=== PATIENT | female | born 1955 | race African-American/Black ===

== ENCOUNTER → 2016-07-02 | Emergency (ER) | payer OTHER ==
[~2016-07-02] MED LIST: ENALAPRILAT DIHYDRATE 2.5 MG/2 ML VIAL IVPB ONE
[2016-07-02 21:29] VITALS: TEMP 98.8; BMI 34.7
--- NOTE | 2016-07-02 21:46 | PDOC ---
History of Present Illness - General History Source: Patient Exam Limitations: No Limitations - History of Present Illness Initial Comments: 07/02/16 22:26 The patient is a 61 year old female with significant past medical history of glaucoma, hypertension, hyperlipidemia, asthma, GERD, and anxiety who presents to the ED with high blood pressure. Patient admits to not taking her blood pressure medications 2 days ago. However, she took her blood pressure medications yesterday after she started to experience a headache. She took an excedrin for her headache with improvement. Patient reports her blood pressure was 171/105 after checking it at home today. She also reports feeling jittery and anxious that improved after taking buspirone. At time of evaluation, patient denies all other complaints and states she comes into the ER after she became concern for her high blood pressure. She denies lightheadedness, blurry vision, diaphoresis, chest pain, SOB, neck pain, jaw pain, shoulder pain, arm pain, nausea, and vomiting. The patient denies fever, chills, cough, abdominal pain, and diarrhea. Allergies: clarithromycin Social History: No alcohol, tobacco, or drug use reported. Past Surgical History: Hernia repair PCP: Dr. Polo Momin GI: Dr. Aguila Parks <Elba Bray - Last Filed: 07/02/16 22:26> - General History Source: Patient <Jason Feng - Last Filed: 07/02/16 23:47> - General Chief Complaint: Blood Pressure Problem Stated Complaint: Blood Pressure Problem Time Seen by Provider: 07/02/16 21:46 Past History <Elba Bray - Last Filed: 07/02/16 22:26> - Past Medical History Asthma: Yes GI Disorders: Yes (gastritis) HTN: Yes Hypercholesterolemia: Yes Suicide Attempt (Hx): No - Surgical History Abdominal Surgery: Yes (HERNIA) Appendectomy: No Cardiac Surgery: No Cholecystectomy: No - Reproductive History Therapeutic (s) & number: No - Immunization History Immunization Up to Date: Yes - Psycho/Social/Smoking Cessation Hx Anxiety: No Suicidal Ideation: No Smoking Status: No Smoking History: Never smoked Number of Cigarettes Smoked Daily: 0 Information on smoking cessation initiated: No Hx Alcohol Use: No Drug/Substance Use Hx: No Substance Use Type: None <Jason Feng - Last Filed: 07/02/16 23:47> - Past Medical History Allergies/Adverse Reactions: Allergies Allergy/AdvReac Type Severity Reaction Status Date / Time clarithromycin [From Biaxin] AdvReac Verified 07/02/16 21:25 Home Medications: Ambulatory Orders Albuterol Sulfate Inhaler - [Ventolin Hfa Inhaler -] 1 - 2 inh PO QID PRN Bupropion HCl [Bupropion Xl] 150 mg PO DAILY 12/22/15 Buspirone HCl [Buspar -] 15 mg PO DAILY 12/22/15 Calcium Carb, Citrate/Vit D3 [Citracal + D ER Tablet] 1 each PO DAILY 12/22/15 Cholecalciferol (Vitamin D3) [Vitamin D3] 1,000 unit PO DAILY 12/22/15 Diphenhydramine [Benadryl -] 50 mg PO HS 12/22/15 Docusate Sodium [Colace -] 100 mg PO TID 12/22/15 Dorzolamide HCl [Trusopt] 1 drop OP TID 12/22/15 Hypromellose 0.5% Opth Soln [Artificial Tears] 1 drop OU DAILY 12/22/15 Latanoprost 0.005% Eye Drops [Xalatan 0.005% Eye Drops -] 1 drop HS 12/22/15 Lisinopril [Prinivil] 20 mg PO DAILY 12/22/15 Loratadine 10 mg PO DAILY 12/22/15 Omeprazole [Prilosec] 40 mg PO PRN 12/22/15 Pravastatin Sodium [Pravachol (Nf)] 40 mg PO HS 12/22/15 Review of Systems - Review of Systems Able to Perform ROS?: Yes Comments:: 07/02/16 22:26 CONSTITUTIONAL: Absent: fever, no chills, no fatigue EYES: Absent: visual changes ENT: Absent: ear pain, no sore throat CARDIOVASCULAR: +high blood pressure Absent: chest pain, no palpitations RESPIRATORY: Absent: cough, no SOB GI: Absent: abdominal pain, no nausea, no vomiting, no constipation, no diarrhea GENITOURINARY: Absent: dysuria, no frequency, no hematuria MUSKULOSKELETAL: Absent: back pain, no arthralgia, no myalgia SKIN: Absent: rash NEURO: +headache PSYCH: +anxious <Bharrat,Elba - Last Filed: 07/02/16 22:26> *Physical Exam - Vital Signs Last Vital Signs Temp Pulse Resp BP Pulse Ox 98.8 F 101 H 16 193/113 99 07/02/16 21:25 07/02/16 21:25 07/02/16 21:25 07/02/16 21:25 07/02/16 21:25 - Physical Exam Comments: 07/02/16 22:26 GENERAL: Well-appearing, well-nourished. No apparent distress. HEENT: Normocephalic, atraumatic. PERRL, EOM intact. CARDIOVASCULAR: Normal S1, S2. Regular rate and rhythm. PULMONARY: Clear to auscultation bilaterally. ABDOMEN: Soft, non-distended, non-tender. EXTREMITIES: Normal ROM in all four extremities. No gross deformities. SKIN: Warm, dry. No rash NEUROLOGICAL: No focal neurological deficits. <Elba Bray - Last Filed: 07/02/16 22:26> - Vital Signs Last Vital Signs Temp Pulse Resp BP Pulse Ox 98.8 F 101 H 16 193/113 99 07/02/16 21:25 07/02/16 21:25 07/02/16 21:25 07/02/16 21:25 07/02/16 21:25 <Jason Feng - Last Filed: 07/02/16 23:47> ED Treatment Course - LABORATORY CBC & Chemistry Diagram: 07/02/16 22:35 07/02/16 22:35 <Jason Feng - Last Filed: 07/02/16 23:47> Medical Decision Making - Medical Decision Making 07/02/16 23:44 Dr. Feng: The scribe's documentation has been prepared under my direction and personally reviewed by me in its entirery. I confirm that the note above accurately reflects all work, treatment, procedures, and medical decision making performed by me. Pt BP is 145/90. Pt feels better. Labs stable. will discharge. <Jason Feng - Last Filed: 07/02/16 23:47> *DC/Admit/Observation/Transfer - Attestations Scribe Attestion: 07/02/16 22:27 Documentation prepared by Elba Bray, acting as medical education specialist for Jason Feng MD <Elba Bray - Last Filed: 07/02/16 22:26> - Discharge Dispostion Admit: No <Jason Feng - Last Filed: 07/02/16 23:47> Diagnosis at time of Disposition: Headache, High blood pressure - Discharge Dispostion Disposition: HOME Condition at time of disposition: Stable - Referrals Referrals: Polo Hester MD [Primary Care Provider] - Malcom Craft MD [Staff Physician] - - Patient Instructions Printed Discharge Instructions: DI for High Blood Pressure
[2016-07-02 23:05] LABS: BASOPHIL 0.5 % (0-2.0); EOSINOPHIL 0.8 % (0-4.5); MCH 26.9 pg (25.7-33.7); MEAN CELL VOLUME 86.9 fl (80-96); MEAN PLT VOLUME 9.8 fl (7.5-11.1); NEUTROPHILS 58.8 % (42.8-82.8); PLATELET COUNT 236 K/MM3 (134-434); RDW 14.2 % (11.6-15.6); WHITE BLOOD COUNT 6.5 K/mm3 (4.0-10.0)
[2016-07-02 23:06] LABS: PH,URINE 6.5 (5.0-8.0); URINE APPEARANCE CLEAR; URINE BILIRUBIN NEGATIVE (NEGATIVE); URINE BLOOD NEGATIVE (NEGATIVE); URINE COLOR LT. YELLOW; URINE GLUCOSE (UA) NEGATIVE (NEGATIVE); URINE KETONE NEGATIVE (NEGATIVE); URINE NITRITE NEGATIVE (NEGATIVE); URINE PROTEIN NEGATIVE (NEGATIVE); URINE UROBILINOGEN 0.2 E.U/dl E.U./dl (0.2-1.0)
[2016-07-02 23:07] LABS: URINE LEUK ESTERASE TRACE (NEGATIVE)
[2016-07-02 23:16] LABS: ANION GAP 8 (8-16); CALCIUM 9.3 mg/dL (8.5-10.1); CO2 25 mmol/L (21-32); CREATININE 1.1 mg/dL (0.55-1.02); GLUCOSE,RANDOM 82 mg/dL (74-106)
[2016-07-02 23:18] LABS: TROPONIN I < 0.02 ng/ml (0.00-0.05)
[2016-07-02 23:19] LABS: URINE BACTERIA RARE /hpf (NONE SEEN); URINE MUCUS RARE; URINE RBC <1 /hpf (0-3); URINE WBC 11 /hpf (3-5)
[2016-07-03 00:19] VITALS: BP 154/85; PULSE 87
== END | disposition home or self-care (01) ==
LOC: JER 20:58
PROC: 3E033GC Introduction of Other Therapeutic Substance into Peripheral Vein, Percutaneous Approach (ICD-10-PCS; principal; 2016-07-02)
DX: I10 Essential (primary) hypertension (principal); R51 Headache; K21.9 Gastro-esophageal reflux disease without esophagitis; H40.9 Unspecified glaucoma
CPT/HCPCS: 36415; 80048; 81003; 81015; 82550; 82553; 84484; 85025; 99281-25

== ENCOUNTER 2016-09-22 18:43 | Emergency (ER) | payer OTHER ==
[2016-09-22 18:51] VITALS: TEMP 98.3; BMI 34.7
[2016-09-22] MEDS ORDERED: HYDROCHLOROTHIAZIDE 25 MG TABLET (FP) PO ONE (21:01)
--- NOTE | 2016-09-22 21:10 | PDOC ---
[id number]: HIGH BP Time Seen by Provider: 09/22/16 20:26 History Source: Patient - History of Present Illness Initial Comments: 09/22/16 21:01 61 year old female c/o " high blood pressure" at home. reports not taking b/p meds for a "couple" of days due to family stressors. patient is currently taking care of grandson. patient reported headache at home which she took her scheduled lisinopril, amlodipine and Excedrin. patient with relief in headache at this time. patient denies headache, dizziness, nausea, vomiting, chest pain. patient has a history of hypertension, hypercholestremia and glaucoma. Past History - Past Medical History Allergies/Adverse Reactions: Allergies Allergy/AdvReac Type Severity Reaction Status Date / Time clarithromycin [From Biaxin] AdvReac Verified 09/22/16 18:51 Home Medications: Ambulatory Orders Albuterol Sulfate Inhaler - [Ventolin Hfa Inhaler -] 1 - 2 inh PO QID PRN Bupropion HCl [Bupropion Xl] 150 mg PO DAILY 12/22/15 Buspirone HCl [Buspar -] 15 mg PO DAILY 12/22/15 Calcium Carb, Citrate/Vit D3 [Citracal + D ER Tablet] 1 each PO DAILY 12/22/15 Cholecalciferol (Vitamin D3) [Vitamin D3] 1,000 unit PO DAILY 12/22/15 Diphenhydramine [Benadryl -] 50 mg PO HS 12/22/15 Docusate Sodium [Colace -] 100 mg PO TID 12/22/15 Dorzolamide HCl [Trusopt] 1 drop OP TID 12/22/15 Hypromellose 0.5% Opth Soln [Artificial Tears] 1 drop OU DAILY 12/22/15 Latanoprost 0.005% Eye Drops [Xalatan 0.005% Eye Drops -] 1 drop HS 12/22/15 Lisinopril [Prinivil] 20 mg PO DAILY 12/22/15 Loratadine 10 mg PO DAILY 12/22/15 Omeprazole [Prilosec] 40 mg PO PRN 12/22/15 Pravastatin Sodium [Pravachol (Nf)] 40 mg PO HS 12/22/15 Asthma: Yes GI Disorders: Yes (gastritis) HTN: Yes Hypercholesterolemia: Yes Suicide Attempt (Hx): No - Surgical History Abdominal Surgery: Yes (HERNIA) Appendectomy: No Cardiac Surgery: No Cholecystectomy: No - Reproductive History Therapeutic (s) & number: No - Immunization History Immunization Up to Date: Yes - Psycho/Social/Smoking Cessation Hx Anxiety: No Suicidal Ideation: No Smoking Status: No Smoking History: Never smoked Number of Cigarettes Smoked Daily: 0 Information on smoking cessation initiated: No Hx Alcohol Use: No Drug/Substance Use Hx: No Substance Use Type: None Review of Systems - Review of Systems Able to Perform ROS?: Yes Is the patient limited Faroese proficient: No Constitutional: No: Symptoms Reported, See HPI, Chills, Diaphoresis, Fever, Loss of Appetite, Malaise, Night Sweats, Weakness, Weight Stable, Unintentional Wgt. Loss, Unexplained wgt Loss, Other Cardiac (ROS): No: Symptoms Reported, See HPI, Chest Pain, Edema, Irregular Heart Rate, Lightheadedness, Palpitations, Syncope, Chest Tightness, Other Integumentary: No: Symptoms Reported, See HPI, Bruising, Change in Color, Change in Hair/Nails, Dryness, Erythema, Flushing, Lesions, Lumps, Pallor, Pruritus, Rash, Sweating, Other Neurological: Yes: Headache. No: Symptoms reported, See HPI, Numbness, Paresthesia, Pre-Existing Deficit, Seizure, Tingling, Tremors, Weakness, Unsteady Gait, Ataxia, Dizziness, Other *Physical Exam - Vital Signs Last Vital Signs Temp Pulse Resp BP Pulse Ox 98.3 F 99 H 18 188/102 100 09/22/16 18:47 09/22/16 18:47 09/22/16 18:47 09/22/16 18:47 09/22/16 18:47 - Physical Exam General Appearance: Yes: Appropriately Dressed Respiratory/Chest: positive: Lungs Clear, Normal Breath Sounds Cardiovascular: positive: Regular Rhythm, Regular Rate, S1, S2. 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 patient currently asymptomatic. b/p slowly decreasing. 09/22/16 22:24 patient feels better. will d/c home to follow up with pmd As soon as possible. *DC/Admit/Observation/Transfer Diagnosis at time of Disposition: High blood pressure Qualifiers: Hypertension type: essential hypertension Qualified Code(s): I10 - Essential ( primary) hypertension - Discharge Dispostion Disposition: HOME - Referrals Referrals: Polo Hester MD [Primary Care Provider] - - Patient Instructions Printed Discharge Instructions: DI for High Blood Pressure Additional Instructions: please follow up with your doctor as soon as possible Continue taking home b/p medications as prescribed. return to the ER for worsening symptoms.
[2016-09-22] MEDS ORDERED: HYDROCHLOROTHIAZIDE 25 MG TABLET (FP) ONE (21:17)
[2016-09-22 22:23] VITALS: BP 159/101; PULSE 84
--- NOTE | 2016-09-24 13:22 | EKG ---
Test Reason : Blood Pressure : / mmHG Vent. Rate : 087 BPM Atrial Rate : 087 BPM P-R Int : 152 ms QRS Dur : 088 ms QT Int : 366 ms P-R-T Axes : 066 008 043 degrees QTc Int : 440 ms NORMAL SINUS RHYTHM MINIMAL VOLTAGE CRITERIA FOR LVH, MAY BE NORMAL VARIANT SEPTAL INFARCT , AGE UNDETERMINED ABNORMAL ECG WHEN COMPARED WITH ECG OF 27-APR-2016 06:18, NO SIGNIFICANT CHANGE WAS FOUND Confirmed by ANGEL ARIZA MD ([id number]) on 09/24/2016 1:22:03 PM Referred By: Confirmed By:ANGEL ARIZA MD
== END 2016-09-22 22:32 | disposition home or self-care (01) ==
LOC: JER 18:43
DX: I10 Essential (primary) hypertension (principal); E78.00 Pure hypercholesterolemia, unspecified; J45.909 Unspecified asthma, uncomplicated
CPT/HCPCS: 93005; 93010; 99282-25

== ENCOUNTER 2017-05-23 03:26 | Emergency (ER) | payer OTHER ==
--- NOTE | 2017-05-23 03:55 | PDOC ---
Attending Attestation - Resident Resident Name: Emmie Kaminski - ED Attending Attestation I have performed the following: I have examined & evaluated the patient, The case was reviewed & discussed with the resident, I agree w/resident's findings & plan, Exceptions are as noted - HPI HPI: 05/23/17 04:18 62yo F hx HTN, anxiety, HL, asthma p/w high blood pressure at home. Reports she was feeling jittery earlier this evening, took her blood pressure and it was elevated to 160/100 so she took her home dose of lisinopril and amlodipine at 10pm. She rechecked her BP at 1:30am and found it to be in the 180s prompting her to come to the ED. ALso gradual onset headache yesterday which she took excedrin for with minimal relief. +mild nausea, no vomiting. Denies cp, visual sxs, sob, focal weakness or numbness. Denies f/c/abd pain, LE edema. Reports she is instructed to take her BP meds PRN her systolic goes above 140s. Pt with multiple similar presentations in the past to the ED. - Physicial Exam PE: 05/23/17 04:31 GENERAL: Awake, alert, and fully oriented, in no acute distress HEAD: No signs of trauma EYES: PERRLA, EOMI, sclera anicteric, conjunctiva clear ENT: Auricles normal inspection, hearing grossly normal, nares patent, oropharynx clear without exudates. Moist mucosa NECK: Normal ROM, supple, no lymphadenopathy, JVD, or masses LUNGS: Breath sounds equal, clear to auscultation bilaterally. No wheezes, and no crackles HEART: Regular rate and rhythm, normal S1 and S2, no murmurs, rubs or gallops ABDOMEN: Soft, nontender, normoactive bowel sounds. No guarding, no rebound. No masses EXTREMITIES: Normal range of motion, no edema. No clubbing or cyanosis. No cords, erythema, or tenderness NEUROLOGICAL: Normal speech, cranial nerves intact, negative pronator drift, 5/ 5 strength in all 4 extremities, normal sensation to light touch in all 4 extremities, normal cerebellar exam, normal gait, normal reflexes and tone SKIN: Warm, Dry, normal turgor, no rashes or lesions noted. - Medical Decision Making 05/23/17 04:31 62-year-old female presents with hypertensive urgency versus emergency. Blood pressure on presentation is 180/106. Headache of gradual headache, pt states identical to previous headaches when hypertensive. Will check labs for end organ damage and treat headache and reassess BP. 05/23/17 06:00 Labs are unremarkable. Blood pressure has come down from 180/106 to 143/103. Pt reports improvement in headache. 05/23/17 07:13 Blood pressure down to 140/94. Will discharge patient home to f/u with Dr. Epstein for BP medication titration. I discussed the physical exam findings, ancillary test results and final diagnoses with the patient. I answered all of the patient's questions. The patient was satisfied with the care received and felt comfortable with the discharge plan and treatment plan. The patient will call their primary care physician within 24 hours to arrange follow-up and will return to the Emergency Department with any new, persistent or worsening symptoms. Heart Score/ECG Review #1 05/23/17 05:13 Twelve-lead EKG was performed and reviewed by me. Normal sinus rhythm, rate 64. Normal axis and intervals. Possible LVH. No ST elevations.
--- NOTE | 2017-05-23 03:55 | PDOC ---
History of Present Illness - General Stated Complaint: BLOOD PRESSURE PROBLEM Time Seen by Provider: 05/23/17 03:54 - History of Present Illness Initial Comments: 05/23/17 05:31 62yo woman with PMH of HTN, HLD, asthma, and glaucoma who presents with high blood pressure. The patient reports feeling "jittery" earlier this evening, which prompted her to check her BP at home and found it to be 160's/100. She then took her home lisinopril 20mg and amlodipine 5mg at around 10pm. She reports that she's instructed to take her home meds when her BP >140/>90. However, she only intermittently checks her home BP. She also reports gradual onset SHARMA for the past day, which is similar in character to prior SHARMA when her BP is elevated. She took 2xExcedrin with minimal relief.Endorses some nausea, but no emesis. Denies any changes in vision, fever, chills, or chest pain. She has had two similar presentations in the past year. Past History - Travel Traveled outside of the country in the last 30 days: No Close contact w/someone who was outside of country & ill: No - Past Medical History Allergies/Adverse Reactions: Allergies Allergy/AdvReac Type Severity Reaction Status Date / Time clarithromycin [From Biaxin] AdvReac Verified 05/23/17 04:07 Home Medications: Ambulatory Orders Albuterol Sulfate Inhaler - [Ventolin Hfa Inhaler -] 1 - 2 inh PO QID 05/23/17 Amlodipine Besylate 5 mg PO DAILY 05/23/17 Bupropion HCl [Bupropion Xl] 150 mg PO DAILY 05/23/17 Buspirone HCl 15 mg PO HS 05/23/17 Cholecalciferol (Vitamin D3) [Vitamin D3] 1,000 iu PO DAILY 05/23/17 Diphenhydramine [Benadryl -] 50 mg PO DAILY 05/23/17 Docusate Sodium [Colace -] 100 mg PO DAILY 05/23/17 Dorzolamide HCl [Trusopt 2%] 1 drop OU TID 05/23/17 Hypromellose 0.5% Opth Soln [Artificial Tears] 1 drop OU DAILY 05/23/17 Latanoprost 0.005% Eye Drops [Xalatan 0.005% Eye Drops -] 1 drop OU HS 05/23/17 Lisinopril [Prinivil] 20 mg PO DAILY 05/23/17 Loratadine 10 mg PO DAILY 05/23/17 Pravastatin Sodium [Pravachol (Nf)] 40 mg PO HS 05/23/17 Asthma: Yes GI Disorders: Yes (gastritis) HTN: Yes Hypercholesterolemia: Yes - Surgical History Abdominal Surgery: Yes (HERNIA) Appendectomy: No Cardiac Surgery: No Cholecystectomy: No - Reproductive History Therapeutic (s) & number: No - Immunization History Immunization Up to Date: Yes - Suicide/Smoking/Psychosocial Hx Smoking Status: No Smoking History: Never smoked Number of Cigarettes Smoked Daily: 0 Hx Alcohol Use: No Drug/Substance Use Hx: No Substance Use Type: None Review of Systems - Review of Systems Able to Perform ROS?: Yes ABD/GI: Yes: Nausea. No: Diarrhea, Vomiting Neurological: Yes: Headache Psychiatric: Yes: Anxiety, Depression All Other Systems: Reviewed and Negative *Physical Exam - Vital Signs 05/23/17 05:47 Vital Signs (72 hours) 05/23/17 03:57 Temperature 98.7 F Pulse Rate 78 Respiratory 18 Rate Blood Pressure 180/106 O2 Sat by Pulse 99 Oximetry (%) - Physical Exam General Appearance: Yes: Nourished, Appropriately Dressed HEENT: positive: Normal ENT Inspection, TMs Normal Neck: positive: Normal Thyroid, Supple, Other Respiratory/Chest: positive: Normal Breath Sounds, Respiratory Distress Cardiovascular: positive: Regular Rhythm, Regular Rate, S1, S2. negative: JVD Gastrointestinal/Abdominal: positive: Normal Bowel Sounds, Soft. 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 Will order EKG and basic labs to assess for end organ damage. Will give Tylenol IV 1gm for SHARMA and reassess. 05/23/17 06:33 EKG: NSR, rate 64, normal axis and intervals, no ST elevations, possible LVH, QTc 429ms First Troponin is negative. CBC without leukocytosis. BP is improving; now 143/ 103, HR 64, 99% on RA. Reports SHARMA has improved. 05/23/17 06:39 CBC, BMP 05/23/17 04:40 05/23/17 05:00 Total Bilirubin 0.4 mg/dL (0.2-1.0) D 05/23/17 05:00 AST 9 U/L (15-37) L D 05/23/17 05:00 ALT 15 U/L (12-78) D 05/23/17 05:00 Alkaline Phosphatase 59 U/L (45-117) 05/23/17 05:00 Albumin 3.7 g/dl (3.4-5.0) 05/23/17 05:00 CMP is reassuring. No indication of LAINEY (Cr baseline of 1); LFTs wnl. 05/23/17 06:43 Overall, patient's BP is improving as well as her SHARMA. There is no evidence of end organ damage, and likely etiology of hypertensive urgency is intermittent medication compliance. All physical exam findings, lab tests, and EKG results were discussed with the patient. The importance of regularly taking her BP medications was discussed. 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 05/23/17 07:30 *DC/Admit/Observation/Transfer Diagnosis at time of Disposition: High blood pressure, Hypertensive urgency - Referrals Referrals: Polo Hester MD [Primary Care Provider] - Ronald Epstein MD [Staff Physician] - - Patient Instructions Printed Discharge Instructions: DI for High Blood Pressure, How to Monitor Your Blood Pressure at Home Additional Instructions: Please make an appointment to see Dr. Epstein, your strip cleaner, in 2 to 3 days to discuss ways to control your blood pressure. Please return to the Emergency Department if you have new, worsening, or concerning symptoms. - Post Discharge Activity
[2017-05-23 04:07] VITALS: TEMP 98.7; BMI 34.0
[2017-05-23] MEDS ORDERED: ACETAMINOPHEN 1000 MG/100 ML VIAL (NON FORMULARY) IVPB ONE (04:25)
[2017-05-23] MEDS ORDERED: ACETAMINOPHEN INJECTION 100 ML IVPB ONE (04:36)
[2017-05-23 04:51] LABS: BASOPHIL 0.6 % (0-2.0); EOSINOPHIL 0.2 % (0-4.5); MCH 27.8 pg (25.7-33.7); MCHC 32.3 g/dl (32.0-36.0); MEAN CELL VOLUME 86.1 fl (80-96); MEAN PLT VOLUME 9.7 fl (7.5-11.1); NEUTROPHILS 47.5 % (42.8-82.8); PLATELET COUNT 174 K/MM3 (134-434); RDW 14.3 % (11.6-15.6); WHITE BLOOD COUNT 5.3 K/mm3 (4.0-10.0)
[2017-05-23 05:49] LABS: CPK 129 IU/L (26-192); TROPONIN I < 0.02 ng/ml (0.00-0.05)
[2017-05-23 06:23] LABS: ALBUMIN 3.7 g/dl (3.4-5.0); ALK PHOS 59 U/L (45-117); ANION GAP 7 (8-16); BILIRUBIN,TOTAL 0.4 mg/dL (0.2-1.0); CALCIUM 8.6 mg/dL (8.5-10.1); CO2 26 mmol/L (21-32); GLUCOSE,RANDOM 88 mg/dL (74-106); SGOT/AST 9 U/L (15-37); SGPT/ALT 15 U/L (12-78); TOT PROT 7.4 g/dl (6.4-8.2)
[2017-05-23 06:43] VITALS: BP 143/104; PULSE 90
--- NOTE | 2017-05-23 09:22 | EKG ---
Test Reason : Blood Pressure : / mmHG Vent. Rate : 064 BPM Atrial Rate : 064 BPM P-R Int : 166 ms QRS Dur : 072 ms QT Int : 416 ms P-R-T Axes : 039 002 024 degrees QTc Int : 429 ms POOR DATA QUALITY, INTERPRETATION MAY BE ADVERSELY AFFECTED NORMAL SINUS RHYTHM MODERATE VOLTAGE CRITERIA FOR LVH, MAY BE NORMAL VARIANT BORDERLINE ECG WHEN COMPARED WITH ECG OF 22-SEP-2016 21:12, NO SIGNIFICANT CHANGE WAS FOUND Confirmed by ANGEL ARIZA MD ([id number]) on 05/23/2017 9:21:52 AM Referred By: Confirmed By:ANGEL ARIZA MD
== END 2017-05-23 07:25 | disposition home or self-care (01) ==
LOC: JER 03:26
PROC: 3E033NZ Introduction of Analgesics, Hypnotics, Sedatives into Peripheral Vein, Percutaneous Approach (ICD-10-PCS; principal; 2017-05-23)
DX: I16.0 Hypertensive urgency (principal); E78.00 Pure hypercholesterolemia, unspecified; F41.8 Other specified anxiety disorders
CPT/HCPCS: 36415; 80053; 82550; 84484; 85025; 93005; 93010; 96374; 99284-25

== ENCOUNTER 2020-06-08 18:51 | Emergency (ER) | payer OTHER ==
[2020-06-08 19:06] VITALS: BMI 31.8
[2020-06-08 21:25] LABS: EOS % 0.2 % (0-4.5); HEMATOCRIT 38.2 % (32.4-45.2); HEMOGLOBIN 12.3 GM/dL (10.7-15.3); LYMPH % 32.7 % (8-40); MCH 28.5 pg (25.7-33.7); MCHC 32.1 g/dl (32.0-36.0); MEAN CELL VOLUME 88.7 fl (80-96); MEAN PLT VOLUME 9.8 fl (7.5-11.1); MONO % 8.3 % (3.8-10.2); NEUT % 57.8 % (42.8-82.8); PLATELET COUNT 241 K/MM3 (134-434); RDW 13.9 % (11.6-15.6); WHITE BLOOD COUNT 5.6 K/mm3 (4.0-10.0)
[2020-06-08 21:35] VITALS: BP 144/99; PULSE 90; TEMP 98.6
[2020-06-08 21:44] LABS: CHLORIDE 106 mmol/L (98-107); SODIUM 139 mmol/L (136-145)
[2020-06-08 21:48] LABS: INR 0.98 (0.83-1.09); PROTHROMBIN TIME (PATIENT) 11.9 SEC (9.7-13.0)
[2020-06-08 21:49] LABS: CALCIUM 9.2 mg/dL (8.5-10.1)
[2020-06-08 21:50] LABS: BLOOD UREA NITROGEN 18.4 mg/dL (7-18); CO2 25 mmol/L (21-32); GLUCOSE,RANDOM 81 mg/dL (74-106)
[2020-06-08 21:51] LABS: ACTIVATED PTT 31.4 SECONDS (25.2-36.5)
[2020-06-08 21:53] LABS: ALK PHOS 59 U/L (45-117); CREATININE 1.2 mg/dL (0.55-1.3); SGOT/AST 55 U/L (15-37); SGPT/ALT 21 U/L (13-61)
[2020-06-08 21:54] LABS: BILIRUBIN,TOTAL 0.5 mg/dL (0.2-1)
[2020-06-08 21:55] LABS: TOT PROT 8.4 g/dl (6.4-8.2)
[2020-06-08] MEDS ORDERED: SODIUM CHLORIDE 1,000 ML IV SCH (22:00)
[2020-06-08 22:15] LABS: ANION GAP 8 MMOL/L (8-16)
[2020-06-08 23:07] LABS: POTASSIUM 6.2 mmol/L (3.5-5.1)
[2020-06-09] MEDS ORDERED: SODIUM POLYSTYRENE SULFONATE 15 GM/60 ML BOTTLE PO ONE (01:27)
[2020-06-09] MEDS ORDERED: SODIUM POLYSTYRENE SULFONATE 15 GM/60 ML BOTTLE ONE (01:29)
== END 2020-06-09 01:42 | disposition home or self-care (01) ==
LOC: JER 18:51
DX: R06.02 Shortness of breath (principal)
CPT/HCPCS: 36415; 71046-TC-FY; 71275-TC; 80053; 82550; 82553; 84484; 85025; 85379; 85610; 85730; 93005; 93010; 99285-25

== ENCOUNTER 2021-12-24 22:49 | Observation (INO) | payer OTHER ==
[2021-12-24 23:02] VITALS: BMI 35.4
[2021-12-25] MEDS ORDERED: KETOROLAC TROMETHAMINE 30 MG/1 ML VIAL IM ONE (01:37)
[2021-12-25] MEDS ORDERED: ACETAMINOPHEN 325 MG TABLET (FP) PO ONE (01:37)
[2021-12-25] MEDS ORDERED: LIDOCAINE 5% TOPICAL PATCH TP ONE (01:37)
[2021-12-25] MEDS ORDERED: CYCLOBENZAPRINE HCL 10 MG TABLET (FP) PO ONE (01:37)
[2021-12-25] MEDS ORDERED: METHOCARBAMOL 500 MG TABLET PO ONE (01:47)
[2021-12-25] MEDS ORDERED: CYCLOBENZAPRINE HCL 10 MG TABLET (FP) ONE (01:49)
[2021-12-25] MEDS ORDERED: ACETAMINOPHEN 325 MG TABLET (FP) ONE ×2 (01:49→11:57)
[2021-12-25] MEDS ORDERED: LIDOCAINE 5% TOPICAL PATCH ONE (01:50)
[2021-12-25] MEDS ORDERED: KETOROLAC TROMETHAMINE 30 MG/1 ML VIAL ONE (01:50)
[2021-12-25 03:44] LABS: BASO % 0.6 % (0-2.0); EOS % 0.3 % (0-4.5); HEMATOCRIT 34.9 % (32.4-45.2); HEMOGLOBIN 11.3 GM/dL (10.7-15.3); LYMPH % 38.1 % (8-40); MCH 27.9 pg (25.7-33.7); MCHC 32.3 g/dl (32.0-36.0); MEAN CELL VOLUME 86.5 fl (80-96); MEAN PLT VOLUME 8.5 fl (7.5-11.1); MONO % 8.5 % (3.8-10.2); NEUT % 52.5 % (42.8-82.8); PLATELET COUNT 221 10^3/uL (134-434); RBC 4.03 M/mm3 (3.60-5.2); RDW 14.4 % (11.6-15.6); WHITE BLOOD COUNT 5.3 K/mm3 (4.0-10.0)
[2021-12-25 03:52] LABS: INR 1.01 (0.83-1.09); PROTHROMBIN TIME (PATIENT) 11.6 SEC (9.7-13.0)
[2021-12-25 04:04] LABS: CALCIUM 8.8 mg/dL (8.5-10.1)
[2021-12-25 04:05] LABS: ALBUMIN 3.9 g/dl (3.4-5.0); BLOOD UREA NITROGEN 14.7 mg/dL (7-18); MAGNESIUM 2.1 mg/dL (1.8-2.4)
[2021-12-25 04:08] LABS: CREATININE 1.1 mg/dL (0.55-1.3)
[2021-12-25 04:09] LABS: BILIRUBIN,TOTAL 0.3 mg/dL (0.2-1)
[2021-12-25 04:10] LABS: TOT PROT 7.3 g/dl (6.4-8.2)
[2021-12-25 07:54] VITALS: TEMP 97.8
[2021-12-25] MEDS ORDERED: KETOROLAC TROMETHAMINE 30 MG/1 ML VIAL IVPUSH PRN (08:42)
[2021-12-25] MEDS ORDERED: ALBUTEROL SO4 HFA INHALER IH PRN (08:45)
[2021-12-25] MEDS ORDERED: PATIENT'S OWN MEDICATION (NON-FORMULARY) (Fluticasone Furoate [Arnuity Ellipta] 100 MCG Bl IH SCH (10:00)
[2021-12-25] MEDS ORDERED: amLODIPine BESYLATE 10 MG TABLET (FP) PO SCH (10:00)
[2021-12-25] MEDS ORDERED: amLODIPine BESYLATE 10 MG TABLET (FP) ONE (10:52)
[2021-12-25] MEDS ORDERED: ACETAMINOPHEN 325 MG TABLET (FP) PO SCH (12:00)
[2021-12-25 13:57] VITALS: BP 149/95; PULSE 84
[2021-12-25] MEDS ORDERED: DORZOLAMIDE 2% HCL OPHTHALMIC SOLUTION 10 ML BOTTLE OU SCH (14:00)
[2021-12-25] MEDS ORDERED: busPIRone HCL 5 MG TABLET PO SCH (22:00)
[2021-12-25] MEDS ORDERED: LIDOCAINE PATCH REMOVAL MC SCH (22:00)
[2021-12-26] MEDS ORDERED: ENOXAPARIN NA (PORCINE) 40 MG/0.4 ML DISP.SYRIN SQ SCH (10:00)
== END 2021-12-25 14:05 | disposition home or self-care (01) ==
LOC: JER 22:49 → JERBED 12-25 06:01
PROVIDERS: ADMIT Internal Medicine; ATTEND Internal Medicine
DX: M54.2 Cervicalgia (principal); M79.602 Pain in left arm; M25.512 Pain in left shoulder; G89.29 Other chronic pain; H40.9 Unspecified glaucoma; M62.81 Muscle weakness (generalized); I10 Essential (primary) hypertension; Z29.8 Encounter for other specified prophylactic measures
CPT/HCPCS: 36415; 71275-TC; 80053; 83735; 84484; 85025; 85610; 85730; 93005; 93010; 99285-25; C9803-CS; G0378; U0003; U0005